=== PATIENT | female | born 1950 | race Caucasian/White ===

== ENCOUNTER 2016-11-23 11:59 | Day surgery (SDC) | payer BC, MEDICARE, OTHER ==
[2016-11-23] MEDS ORDERED: FENTANYL PF 100MCG/2ML VIAL IV ONE (14:00)
[2016-11-23] MEDS ORDERED: PROPOFOL 10 MG/ML VIAL IV ONE (14:00)
[2016-11-23] MEDS ORDERED: MIDAZOLAM HCL 2MG/2ML VIAL IV ONE (14:00)
[2016-11-23] MEDS ORDERED: LIDOCAINE 2% MDV (20MG/ML) 20ML VIAL IV ONE (14:00)
--- NOTE | 2016-11-27 09:46 | Operative Note ---
DATE OF SURGERY: 11/23/2016 OPERATION: ESOPHAGOGASTRODUODENOSCOPY with biopsy. PREOPERATIVE DIAGNOSIS: Esophageal dysphagia. POSTOPERATIVE DIAGNOSES: 1. 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 2. Small sliding hiatal hernia. 3. Linear antral erosions. PROCEDURE: After informed consent was obtained from the patient, she was placed in the left lateral decubitus position in the endoscopy suite, sedated and monitored by the department of anesthesia. Once sedated, a well-lubricated AKU512 gastroscope was placed in the posterior oropharynx and under direct visualization passed to the proximal esophagus. The endoscope was advanced through the proximal, mid, and distal esophagus. The esophagus in its length appeared unremarkable. No strictures, ulcers, or changes to suggest eosinophilic esophagitis was readily identified. The GE junction demonstrated some irregularity of the squamocolumnar border and 2 tongues of columnar epithelium perhaps related to short-segment Padron's. There was a small hiatal hernia. The subdiaphragmatic stomach demonstrated linear erosions in the antrum. The pylorus, duodenal bulb, and sweep were unremarkable. J-turn views of the proximal stomach revealed a small hiatal hernia. The endoscope was straightened. Antral biopsies were obtained. GE junction biopsies were obtained. The endoscope was removed from the patient with no new findings noted. RECOMMENDATIONS: I would suggest the patient undergo an esophagogram with barium tablet. Also, we will await tissue histology. As always, thank you for allowing me to participate in the healthcare of your patients. CC: Dr. Nevaeh FOREMAN
== END 2016-11-23 13:50 | disposition home or self-care (01) ==
LOC: HOP 11:59
PROVIDERS: ATTEND Internal Medicine Gastroenterology
DX: K22.8 Other specified diseases of esophagus (principal); K44.9 Diaphragmatic hernia without obstruction or gangrene; K25.9 Gastric ulcer, unspecified as acute or chronic, without hemorrhage or perforation
CPT/HCPCS: 43239; 00740; 88305; 88313; J3010